=== PATIENT | male | born 1960 | race Caucasian/White ===

== ENCOUNTER 2018-06-07 20:10 | Emergency (ER) | payer OTHER, SELFPAY ==
[2018-06-07 20:11] VITALS: BP 199/137; PULSE 89; RESP 17; TEMP 36.9; O2SAT 98; BMI 28.0
[2018-06-07 20:52] LABS: Absolute Lymphocyte Count 1.44 X10^3/ul (0.83-4.51); Absolute Neutrophil Count 6.2 X10^3/uL (2.0-7.7); Basophil# 0.01 X10^3/uL; Basophil% 0.1 % (0-1); Eosinophil# 0.25 X10^3/uL; Eosinophils% 2.9 % (0-5); Hematocrit 44.6 % (40-54); Hemoglobin 14.7 g/dl (13.0-16.5); Lymphocyte # 1.44 X10^3/ul (4.0); Lymphocyte % 16.8 % (19-41); Mean Corpuscular Volume 94.1 fL (80-94); Mean Platelet Vol. 10.8 fl (6.2-12.0); Monocyte# 0.67 X10^3/uL; Monocyte% 7.8 % (0-10); Neutrophil % 72.3 % (47-70); Platelet Count 227 K/mm3 (150-450); RBC Distribution Width CV 12.9 % (11.6-14.6); RBC Distribution Width SD 44.2 fl (35.1-43.9); Red Blood Count 4.74 M/mm3 (4.6-6.2); White Blood Count 8.6 K/mm3 (4.4-11.0)
[2018-06-07 20:54] LABS: Anion Gap 9 (5-15); BUN 15 mg/dL (7-18); BUN/Creat Ratio 13.5 RATIO (10-20); Calcium,Total 8.5 mg/dL (8.5-10.1); Chloride 105 mmol/L (98-107); Creatinine, Serum 1.11 mg/dL (0.70-1.30); EST Glomerular Filtration Rate 72 mL/min (>60); Est Glom Filt Rate - Afr Amer 87 mL/min (>60); Estimated Creatinine Clearance 71.66 ml/min; Glucose 159 mg/dL (74-106); Potassium 3.7 mmol/L (3.5-5.1); Sodium Level 141 mmol/L (136-145)
[2018-06-07 20:55] LABS: POSITIVE COUNT NO; POSITIVE DIFFERENTIAL NO; POSITIVE MORPHOLOGY NO
[2018-06-07 21:22] VITALS: BP 170/133; PULSE 94; RESP 15; O2SAT 98
--- NOTE | 2018-06-07 21:42 | ED.DCSUM_ITS ---
- ER Visit Summary Date of Service: 06/07/18 Chief Complaint: Rectal bleeding History of Present Illness: The patient is a 57 M no significant past medical history other than history of alcoholism. Patient states he has 10-12 shots of [place] a day plus beer. He has no primary care physician. He is currently on no medications. States that he has had rectal bleeding recently and also a times black stool. No abdominal pain. No hematemesis. No coffee-ground emesis. Physical Examination: Middle-aged male. Vital signs are stable. He is afebrile. His initial blood pressure is 199/137. HEENT exam unremarkable. Neck nontender. Lungs clear to auscultation bilaterally. Heart regular rhythm rate about 90. Abdomen is soft. Nondistended. Normal bowel sounds. No peritoneal signs. Rectal exam there is one external hemorrhoid is not thrombosed or bleeding. Normal rectal tone. No mass. He has pitch black stool currently there is no bright red blood. Moving all 4 extremities. No edema. Neurologically is awake and alert with no focal motor deficits. Skin without signs of bruising. Test Results: Hemoglobin 14. Electrolytes are unremarkable with a normal creatinine and gap. Patient is being typed and screened. Emergency Department Course and Treatment: History and exam are consistent with a GI bleed due to the black stool I suspect its upper. Patient will be started on IV Protonix. Treatment Plan: Patient be started on Protonix. I discussed with him admission and he prefers to do this as outpatient absolutely did not want to be admitted. I also offered him inpatient detox which she did not want again. He states he will follow-up with an area surgeon for upper and lower endoscopy. He will follow-up with [facility] for detox. And to return if he has hematemesis or feels worse. Disposition: Admission Impression: GI bleed (upper) History of alcohol abuse This note was generated with [employer] dictation software. It may contain incorrect words, spelling, and punctuation that were not noted in review of the chart prior to signing ED Disposition - Plan for ED Patient: Referrals: Care Physician,No Primary [Primary Care Provider] -
[2018-06-07 22:00] LABS: International Normalized Ratio 1.1; Prothrombin Time (Protime)PT. 13.8 SECONDS (11.7-14.9)
[2018-06-07 22:01] LABS: Partial Thromboplast Time 34.4 Seconds (24.1-36.2)
[2018-06-07 22:10] LABS: AST(SGOT) 19 U/L (15-37); Alanine Aminotransfer ALT/SGPT 35 U/L (16-61); Albumin, Serum 3.8 g/dL (3.2-5.0); Alkaline Phosphatase 103 U/L (45-117); Bilirubin, Direct 0.19 mg/dL (0.00-0.30); Globulin 3.8 g/dL (2.2-4.2); Protein, Total 7.6 g/dL (6.4-8.2)
[2018-06-07 22:15] VITALS: BP 174/120; PULSE 88; RESP 15; O2SAT 95
--- NOTE | 2018-06-07 22:56 | PCM.HP.STD ---
History of Present Illness The patient is a 57 year old M [] Past Medical History Allergies No Known Allergies Allergy (Verified 06/07/18 20:11) Home Medications: Ambulatory Orders Medication Instructions Recorded NK 06/07/18 Smoking Status: Unknown if ever smoked - Physical Exam Vital Signs Temp Pulse Resp BP Pulse Ox 98.5 F 88 15 174/120 H 95 06/07/18 20:11 06/07/18 22:15 06/07/18 22:15 06/07/18 22:15 06/07/18 22:15 Oxygen Delivery Method Room Air Weight: 86.183 kg Body Mass Index (BMI) 28.0 Laboratory Tests Past 24 Hrs 06/07/18 06/07/18 06/07/18 20:25 20:25 20:25 WBC 8.6 RBC 4.74 Hgb 14.7 Hct 44.6 MCV 94.1 H MCH 31.0 MCHC 33.0 RDW 12.9 RDW Differential 44.2 H Plt Count 227 MPV 10.8 Immature Gran % (Auto) 0.100 Neut % (Auto) 72.3 H Lymph % (Auto) 16.8 L [place] % (Auto) 7.8 Eos % (Auto) 2.9 Baso % (Auto) 0.1 Absolute Neuts (auto) 6.2 Absolute Lymphs (auto) 1.44 Total Counted Not Reportable PT INR APTT Sodium 141 Potassium 3.7 Chloride 105 Carbon Dioxide 27.0 Anion Gap 9 BUN 15 Creatinine 1.11 Estim Creat Clear Calc 71.66 Est GFR (MDRD) Af Amer 87 Est GFR (MDRD) Non-Af 72 BUN/Creatinine Ratio 13.5 Glucose 159 H Calcium 8.5 Total Bilirubin 0.60 Direct Bilirubin 0.19 AST 19 ALT 35 Alkaline Phosphatase 103 Total Protein 7.6 Albumin 3.8 Globulin 3.8 Blood Type Antibody Screen 06/07/18 06/07/18 20:25 20:25 WBC RBC Hgb Hct MCV MCH MCHC RDW RDW Differential Plt Count MPV Immature Gran % (Auto) Neut % (Auto) Lymph % (Auto) [place] % (Auto) Eos % (Auto) Baso % (Auto) Absolute Neuts (auto) Absolute Lymphs (auto) Total Counted PT 13.8 INR 1.1 APTT 34.4 Sodium Potassium Chloride Carbon Dioxide Anion Gap BUN Creatinine Estim Creat Clear Calc Est GFR (MDRD) Af Amer Est GFR (MDRD) Non-Af BUN/Creatinine Ratio Glucose Calcium Total Bilirubin Direct Bilirubin AST ALT Alkaline Phosphatase Total Protein Albumin Globulin Blood Type O POSITIVE Antibody Screen NEGATIVE
--- NOTE | 2018-06-07 22:57 | ED.DEP ---
ED Disposition - Plan for ED Patient: Disposition: Home or Assisted Living Prescriptions: Pantoprazole Sodium [Protonix] 40 mg PO DAILY #30 tab Referrals: Nancy Anderson MD [STAFF PHYSICIAN] - As soon as possible Omari Stone MD [STAFF PHYSICIAN] - As soon as possible Additional Instructions: Call and follow-up and make an appointment with either 1 of the general surgeons listed. You need both upper and lower endoscopy done. Most likely you have either alcoholic gastritis or an ulcer in your stomach. Protonix daily to help heal your stomach. Return if feeling worse, increasing bleeding or throwing up blood. Decrease your alcohol consumption. No aspirin or aspirin like products. You may use Tylenol. Strongly consider alcohol counseling and/or detox. Call and follow-up with a [facility] program
[2018-06-07 23:14] VITALS: RESP 16
== END 2018-06-07 23:15 | disposition home or self-care (01) ==
PROVIDERS: Emergency Provider Emergency Medicine
DX: K92.2 Gastrointestinal hemorrhage, unspecified (principal); F10.20 Alcohol dependence, uncomplicated; Y90.6 Blood alcohol level of 120-199 mg/100 ml; K64.4 Residual hemorrhoidal skin tags; Z87.891 Personal history of nicotine dependence
CPT/HCPCS: 80048; 80076; 85025; 85610; 85730; 86850; 86900; 99283; A4216; J3490

== ENCOUNTER 2018-06-13 11:06 | Day surgery (SDC) | payer OTHER, SELFPAY ==
[2018-06-13] VITALS (7 sets, daily range): BP systolic 114–149; BP diastolic 87–109; PULSE 72–93; RESP 18; TEMP 36.2–36.8; O2SAT 97–100; BMI 25.3
--- NOTE | 2018-06-13 07:27 | PCM.HP.BLA ---
History and Physical Date of Admission: 06/13/18 HISTORY AND PHYSICAL ? Antonio Ku 1960 ? REFERRING PHYSICIAN: ??Omari Stone MD ? CHIEF COMPLAINT: ??New Patient; blood in the stool; and ED Follow-up ? HPI: The patient is a 57 year old male referred for endoscopy. ?Antonio notes the following GI complaints: ??Antonio denies abdominal pain.. ?Antonio denies?diarrhea. ??Antonio denies?constipation. ?Antonio denies?a change in bowel habits. ?Antonio notes?melena. ?Antonio notes?bright red blood per rectum. ???Antonio denies?hemorrhoids. ? ? The patient ?notes no history of upper GI complaints. ? Antonio has not?undergone prior endoscopy. ?He presented to [facility] emergency department on June 07 with complaints of brighter blood per rectum. ?It was recommended to be admitted but he declined admission. ?His hemoglobin returned at 14 g. ?He denied dizziness since discharge. ?He did note more melena for the 2 days following leaving the hospital. ?His bowel habits have been relatively normal for the past 2 days. ? He quit smoking tobacco in nearly . ?He did note very heavy alcohol consumption upwards of 6 beers per day and multiple shots of scotch daily. ?He stopped drinking one week prior. ?He had not noticed any history of alcohol withdrawal symptoms in the past or with this episode of quitting. ?He also noted increased NSAID use over the days preceding his bleeding episode. ? PAST?MEDICAL?HISTORY PAST MEDICAL HISTORY Diagnosis Date ? Blood in the stool ? ? ? PAST?SURGICAL?HISTORY PAST SURGICAL HISTORY Procedure Laterality Date ? HERNIA REPAIR HX ? CURRENT?MEDICATIONS ? Current Outpatient Prescriptions: pantoprazole DR (PROTONIX) 40 mg tablet once daily. ? No current facility-administered medications for this visit. ? ALLERGIES: Patient has no known allergies. ? PERSONAL HISTORY: SOCIAL?HISTORY Social History ??Marital status: Single ?Spouse name: ?Years of education: ?Number of children: ? Social History Main Topics ??Smoking status: Former Smoker ?Packs/day: 0.00 ?Years: 0.00 ?Smokeless tobacco: Never Used ?Comment: on and off but none since 1999 ??Alcohol use: Yes ?Comment: stopped 2 weeks ago ??Drug use: Yes ?Types: Marijuana ?Comment: occasionally ? FAMILY HISTORY: FAMILY?HISTORY FAMILY HISTORY Problem Relation Age of Onset ? Alcohol/Drug Father ? ? REVIEW OF SYMPTOMS: ??The review of systems data was entered by the nurse and reviewed by me ? Nursing Notes: Brittney Gonzalez Ma ?06/11/2018 ?1:42 PM ?Signed REVIEW OF SYSTEMS: ?General:???The patient denies fatigue, denies weight loss, denies weight gain, denies feeling hot, and denies feelings of cold. ?Eyes: ?The patient denies glaucoma, denies eye injury/surgery, does not wear glasses or contacts. ?Ear/Nose/Throat: ?The patient NOTES allergies, denies hayfever, denies ear infections, and denies bloody noses. ?Cardiovascular: ?The patient denies chest pain, denies heart disease, NOTES high blood pressure,denies cardiac stent, denies prior heart attack, denies irregular heart beat, denies high cholesterol, ?denies poor circulation, denies heart failure, other cardiac issues, denies claudication, denies cold feet, denies peripheral arterial stent. ?Respiratory: ?The patient denies tuberculosis, denies pneumonia, denies frequent cough, denies pulmonary embolism, denies shortness of breath, and denies coughing up blood. ?Gastrointestinal: ?The patient denies difficulty swallowing, denies acid reflux, denies ulcers, denies vomiting, denies jaundice/hepatitis, denies gallbladder problems, NOTES black or tarry stools, NOTES hemorrhoids, denies bleeding from rectum, denies diverticulitis, denies constipation, denies diarrhea, denies loss of stool control, and NOTES hernias. ?Kidney/Bladder: ?The patient denies kidney stones, denies urine infections, and denies bloody urine. ?Skin: ?The patient denies a history of skin cancer, denies bleeding/changing moles, and denies a history of skin rash. ?Neurologic: ?The patient denies a history of epilepsy/convulsions, denies headaches, denies head/spinal injuries, and denies stroke/TIA. ?Psychiatric: ?The patient denies psychiatric medications, denies depression, and denies voices, denies substance abuse. ?Endocrine: ?The patient denies thyroid disorders, denies diabetes, and denies hormonal problems. ?Hematologic: ?The patient denies a history of bruising, denies bleeding, and denies anemia, denies blood clots. ?Infections: ?The patient denies a history of measles and mumps, denies rheumatic fever, and denies sexually transmitted diseases. ?Musculoskeletal: ?The patient denies back pain/injury, denies back problems, denies sciatica, denies knee/foot trouble, denies arthritis, or denies gout. ? ? When was patient's last Mammogram screening? N/A ? ?Last Colonoscopy: ?None ? ? Brittney Gonzalez Ma ? PHYSICAL EXAMINATION: ? General: ?The patient is 57 year old male, well nourished, well hydrated in no acute distress. ?The patient is oriented to time, place, and person. ? VITALS: Blood pressure 172/94, pulse 96, temperature 36.8 ?C (98.2 ?F), temperature source Temporal Artery, height 175.3 cm (5' 9), weight 81.2 kg (179 lb), SpO2 98 %.?Body mass index is 26.43 kg/m?.? ? HEENT: ?Normal cephalic, ataumatic, pupils are equally round, sclera are anicteric, mucous membranes are moist, oropharynx is clear. ?Neck has no masses, asymmetry or lymphadenopathy. ?Thyroid is unremarkable. ? Respiratory: ?Clear to auscultation and percussion. ?Normal respiratory excursion and pattern. ? Cardiac: ?Examination is regular rate and rhythm. ? Abdominal exam: ?Soft, nontender, ?with no palpable masses. ?No hepatosplenomegaly. ?No palpable hernias. ? Rectal exam: exam deferred ? Extremities: ?no clubbing, cyanosis or edema. ?No adenopathy. ? Other: ? LABORATORY VALUES: As Noted ? RADIOLOGIC STUDIES: ?As Noted ? Assessment ? IMPRESSION: ?Lower GI bleed, history of alcohol abuse ? PLAN: ?I plan to perform upper and lower?endoscopy. ??We discussed the risks and benefits of the planned endoscopy. ?I have informed the patient that complications can occur including failure to complete the endoscopy and perforation. ?The patient had the opportunity to ask questions concerning the planned endoscopy. ?My staff has also explained the procedure to the patient in understandable terms and has given the patient printed material concerning the procedure. ?The patient freely consents to surgery. ? I plan to use golytely bowel preparation for endoscopy ? I plan for monitored anesthetic care. ? Diagnoses: (K92.2) Acute GI bleeding ?(primary encounter diagnosis) ? Return to Clinic: The patient is instructed to follow-up with me after the testing has been completed. ? Omari Stone MD
--- NOTE | 2018-06-13 12:30 | COLBX_PTH ---
PATIENT: VY PULLIAM LOC: EN U#:[id number] AGE/SX: 57/M ROOM: RE06/13/[address]: Dr. Omari Stone MD : 1960 BED: DIS: 06/13/2018 SPEC #: [id number] RECD: 06/13/18 13:45 STATUS: REI REDerik #: [id number] [place]: 06/13/18 12:[address]: Omari Stone DEPT: SURGICAL PATHOLOGY RECD BY: Michele Velez ENTERED: 06/13/18 14:07 SP TYPE: COLON BX OTHR DR: No Primary Care Phys Tissues: Sigmoid colon biopsy Procedures: Surgery Specimen Level IV HEADER OPERATION: Colonoscopy, EGD [place] [place] PRE-OP DIAGNOSIS: GI bleeding TISSUE SUBMITTED: Sigmoid colon polyp MICROSCOPIC DIAGNOSIS Sigmoid colon polyp, biopsy: Tubular adenoma. SJ:jonnie 06/14/18 MICROSCOPIC DESCRIPTION Slides are reviewed. GROSS DESCRIPTION Received in fixative is one container labeled with the patient's name and designated sigmoid colon polyp. The specimen consists of a nickerson-pink polyp measuring 1 x 0.7 x 0.3 cm. The specimen is totally submitted in one cassette. / SJ:jonnie 06/13/18 TC:1 CPT: 91152
--- NOTE | 2018-06-13 13:35 | OP.ENDO_ITS ---
06/13/2018 No Primary Care Physician Re : Upper GI end[facility] This procedure was performed on May. My impressions and recommendations are as follows: Impressions : - Normal examined jejunum. - Erythematous duodenopathy. - Suspicious for a healing non-bleeding duodenal ulcers with no stigmata of bleeding. - Gastritis. Biopsied. - Grade I esophageal varices. Recommendations : - Return to my office in 1 week. - Continue present medications. My findings are described in the full procedure note, which is enclosed. If I can be of further assistance, please feel free to contact me at Doctor phone number(s): , Work: . Sincerely, Omari Stone MD 06/13/2018 1:34:55 PM This report has been signed electronically.
--- NOTE | 2018-06-13 13:38 | OP.ENDO_ITS ---
06/13/2018 No Primary Care Physician Re : [facility] This procedure was performed on May. My impressions and recommendations are as follows: Impressions : - Perianal rash found on perianal exam. - Diverticulosis in the entire examined colon. - One 12 mm polyp in the sigmoid colon, removed with a hot snare. Resected and retrieved. - The examination was otherwise normal. - The distal rectum and anal verge are normal on retroflexion view. Recommendations : - Discharge patient to home. - Resume previous diet. - Continue present medications. - Await pathology results. - Return to my office in 1 week. - Repeat colonoscopy is recommended. The colonoscopy date will be determined after pathology results from today's exam become available for review. My findings are described in the full procedure note, which is enclosed. If I can be of further assistance, please feel free to contact me at Doctor phone number(s): , Work: . Sincerely, Omari Stone MD 06/13/2018 1:37:44 PM This report has been signed electronically.
== END 2018-06-13 14:05 | disposition home or self-care (01) ==
LOC: EN 11:08 → AC 11:10
PROVIDERS: Referring Provider Surgery; Visit Provider Surgery
PROC: 0DJD8ZZ Inspection of Lower Intestinal Tract, Via Natural or Artificial Opening Endoscopic (ICD-10-PCS; CPT 45378; principal; 2018-06-13 12:25)
DX: D12.5 Benign neoplasm of sigmoid colon (principal); K29.70 Gastritis, unspecified, without bleeding; I85.00 Esophageal varices without bleeding; K26.9 Duodenal ulcer, unspecified as acute or chronic, without hemorrhage or perforation; K57.30 Diverticulosis of large intestine without perforation or abscess without bleeding; R21 Rash and other nonspecific skin eruption; Z87.891 Personal history of nicotine dependence
CPT/HCPCS: 43239; 45385; 88305; J7120